=== PATIENT | male | born 1960 | race Caucasian/White ===

== ENCOUNTER 2020-10-01 13:05 | Outpatient (CLI) | payer MEDICAID ==
[~2020-10-01] VITALS: Ht 188 cm; Wt 103.0 kg
[2020-10-01 13:17] VITALS: BP 116/71
--- NOTE | 2020-10-03 20:44 | Consultation ---
DATE OF CONSULTATION: 10/01/2020 CONSULTING PHYSICIAN: Carson Hayden MD CHIEF COMPLAINT: Referral for screening colonoscopy. PAST MEDICAL HISTORY: None. PAST SURGICAL HISTORY: Appendectomy. MEDICATIONS: None. FAMILY HISTORY: colon cancer. SOCIAL HISTORY: Patient occasionally drinks alcohol. Denies any tobacco or IV drug abuse. ALLERGIES: No known drug allergies. REVIEW OF SYSTEMS: Positive for abdominal discomfort. PHYSICAL EXAMINATION: VITAL SIGNS: Temperature 97, blood pressure 110/60, pulse is 40, respirations 20. Height is 6 feet 2 inches, weight is 227. HEENT: Normocephalic and atraumatic. Sclerae anicteric. NECK: Supple. No evidence of obvious lymphadenopathy CARDIOVASCULAR: Regular rate and rhythm. Plus S1-S2. LUNGS: Clear to auscultation bilaterally. ABDOMEN: Positive bowel sounds. Soft and nontender. EXTREMITIES: No cyanosis, no clubbing, no edema. ASSESSMENT AND PLAN: This is a 59-year-old male referred for screening colonoscopy. Risks and benefits of procedure were explained to him in detail. Patient agreed. Plan to schedule as soon as authorization is obtained. Carson Hayden M.D. DR: SHYAM JOB#: [id number] CC:
== END 2020-10-01 15:05 | disposition home or self-care (01) ==
LOC: PAN 13:05
DX: R10.9 Unspecified abdominal pain (principal); Z90.89 Acquired absence of other organs
CPT/HCPCS: 99203